=== PATIENT | female | born 1985 | race African-American/Black ===

== ENCOUNTER 2018-12-06 03:24 | Emergency (ER) | payer MEDICAID, OTHER ==
[2018-12-06] MEDS ORDERED: ONDANSETRON HCL INJ/PF 4 MG/2 ML SDV IV ONE (06:38)
[2018-12-06] MEDS ORDERED: NORMAL SALINE 1000 ML 1,000 ML IV ONE (06:38)
[2018-12-06] MEDS ORDERED: MORPHINE SULFATE 10 MG/ML INJ IV ONE (06:38)
--- NOTE | 2018-12-06 06:42 | ER Document Report ---
ED General - General Chief Complaint: Abdominal Pain Stated Complaint: ABDOMINAL PAIN TRAVEL OUTSIDE OF THE [place] IN LAST 30 DAYS: No - HPI Notes: Patient is a 32-year-old female presents emergency department for evaluation of 5 days of lower abdominal pain. She states it feels like "being in labor." She states the pain is been intermittent over the last 5 days. It is often a dull ache, but she is sharp and intense waves of cramping. She states the first wave happened 5 days ago. She had 2 episodes of emesis with that. She stated she also had an increase in the intensity of her pain last night. She had 4 episodes of nonbloody, nonbilious emesis this morning. She denies any fevers or chills. No urinary symptoms. Normal bowel movement just prior to arrival. She denies any vaginal discharge. No external sores. No history of STI. Her last menstruation was 5 days ago. She states it is always heavy, was nothing out of the ordinary. - Related Data Allergies/Adverse Reactions: No Known Allergies Allergy (Unverified 12/06/18 03:30) Past Medical History - General Information source: Patient - Social History Smoking Status: Current Every Day Smoker Family History: DM Patient has suicidal ideation: No Patient has homicidal ideation: No - Medical History Medical History: Other - Ovarian cysts Review of Systems - Review of Systems Constitutional: No symptoms reported EENT: No symptoms reported Cardiovascular: No symptoms reported Respiratory: No symptoms reported Gastrointestinal: See HPI Genitourinary: No symptoms reported Female Genitourinary: No symptoms reported Musculoskeletal: No symptoms reported Skin: No symptoms reported Neurological/Psychological: No symptoms reported Physical Exam - Vital signs Vitals: Temp Pulse Resp BP Pulse Ox 97.7 F 64 17 116/67 99 12/06/18 03:33 12/06/18 03:33 12/06/18 03:33 12/06/18 03:33 12/06/18 03:33 - Notes Notes: Vital signs reviewed, please refer to chart. Head is normocephalic, atraumatic. Pupils equal round, reactive to light. Neck is supple without meningismus. Heart is regular rate and rhythm. Lungs are clear to auscultation bilaterally. Abdomen is soft, moderately tender in the pelvis bilaterally, left greater than right, without rebound or guarding, normoactive bowel sounds throughout. Extremities without cyanosis, clubbing. Posterior calves are nontender. Peripheral pulses are equal. Skin is warm and dry. Patient is awake, alert, neurological exam is nonfocal. Course - Re-evaluation Re-evalutation: 12/06/18 09:19 Patient presents emergency department for evaluation of pelvic pain. Has been ongoing for 5 days. Her abdominal exam reveals tenderness but is nonsurgical. Laboratory investigations are largely unremarkable. She is a very mild leukocytosis. She has a few white blood cells in her urine, but it is nitrate negative. She has no urinary symptoms. Transvaginal ultrasound was performed and found to be unremarkable, including no signs of ovarian torsion. Patient is feeling improved. We will refer her on to primary care and gynecology for further evaluation. She will be sent home with anti-inflammatories. She is to return to the emergency department with worsening or new concerning symptoms of any sort. - Vital Signs Vital signs: Temp Pulse Resp BP Pulse Ox 97.7 F 64 18 107/59 L 99 12/06/18 03:33 12/06/18 03:33 12/06/18 07:09 12/06/18 08:20 12/06/18 08:20 - Laboratory Result Diagrams: 12/06/18 06:27 12/06/18 06:27 Laboratory results interpreted by me: 12/06/18 12/06/18 12/06/18 06:27 06:27 08:00 WBC 12.7 H Plt Count 138 L Seg Neutrophils % 86.5 H Lymphocytes % 9.4 L Absolute Neutrophils 11.0 H Glucose 114 H AST 46 H Urine Protein 30 H Ur Leukocyte Esterase TRACE H - Diagnostic Test Radiology reviewed: Reports reviewed Radiology results interpreted by me: 12/06/18 09:19 Transvaginal US 12/06/18 06:38 IMPRESSION: NORMAL TRANSVAGINAL PELVIC ULTRASOUND. Discharge - Discharge Clinical Impression: Pelvic pain Condition: Stable Disposition: HOME, SELF-CARE Instructions: Pelvic Pain ([facility]) Additional Instructions: No clear cause was found for your pain today. Take medication as prescribed, preferably with food. Follow-up with primary care no CHERRY GROWER. Return to the [facility] department with worsening or concerning symptoms of any sort. Referrals: NANNETTE BALDERAS MD [ACTIVE STAFF] - Follow up as needed SWATI MEEKS MD [[facility] [employer]KER HELPER] - Follow up as needed
[2018-12-06 06:55] LABS: ABSOLUTE LYMPHOCYTES (AUTO) 1.2 10^3/uL (0.5-4.7); ABSOLUTE MONOCYTES (AUTO) 0.5 10^3/uL (0.1-1.4); BASOPHILS % (AUTO) 0.1 % (0-2); EOSINOPHILS % (AUTO) 0.1 % (0-6); HEMATOCRIT 40.4 % (36.0-47.0); HEMOGLOBIN 13.2 g/dL (12.0-15.5); LYMPHOCYTES % (AUTO) 9.4 % (13-45); MEAN CORPUSCULAR HEMOGLOBIN 27.6 pg (27.0-33.4); MEAN CORPUSCULAR HGB CONC 32.6 g/dL (32.0-36.0); MEAN CORPUSCULAR VOLUME 85 fl (80-97); MONOCYTES % (AUTO) 3.9 % (3-13); PLATELET COUNT 138 10^3/uL (150-450); RED BLOOD COUNT 4.78 10^6/uL (3.72-5.28); RED CELL DISTRIBUTION WIDTH 13.5 % (11.5-14.0); SEGMENTED NEUTROPHILS % (AUTO) 86.5 % (42-78); TOTAL CELLS COUNTED % (AUTO) 100 %; WHITE BLOOD COUNT 12.7 10^3/uL (4.0-10.5)
[2018-12-06 06:57] LABS: ALANINE AMINOTRANSFERASE 43 U/L (9-52); ALBUMIN 4.1 g/dL (3.5-5.0); ALKALINE PHOSPHATASE 73 U/L (38-126); ANION GAP 7 (5-19); ASPARTATE AMINO TRANSFERASE 46 U/L (14-36); BILIRUBIN,DIRECT 0.2 mg/dL (0.0-0.4); BILIRUBIN,TOTAL 0.4 mg/dL (0.2-1.3); BLOOD UREA NITROGEN 11 mg/dL (7-20); CALCIUM 9.5 mg/dL (8.4-10.2); CARBON DIOXIDE 30 mmol/L (22-30); CHLORIDE 106 mmol/L (98-107); GLUCOSE 114 mg/dL (75-110); POTASSIUM 4.3 mmol/L (3.6-5.0); TOTAL PROTEIN 6.8 g/dL (6.3-8.2)
[2018-12-06 08:26] LABS: AMORPHOUS SEDIMENT,URINE TRACE /HPF; APPEARANCE,URINE SLIGHTLY-CLOUDY; BILIRUBIN,URINE NEGATIVE (NEGATIVE); COLOR,URINE YELLOW; GLUCOSE, URINE NEGATIVE (NEGATIVE); KETONES,URINE NEGATIVE (NEGATIVE); LEUKOCYTE ESTERASE,URINE TRACE (NEGATIVE); NITRITE,URINE NEGATIVE (NEGATIVE); PROTEIN,URINE 30 mg/dL (NEGATIVE); UROBILINOGEN,URINE NEGATIVE mg/dL (<2.0)
--- NOTE | 2018-12-06 08:48 | RADIOLOGY REPORT (SQ) ---
EXAM DESCRIPTION: U/S NON OB PEL TV W/DOPPLER COMPLETED DATE/TIME: 12/06/2018 8:22 am REASON FOR STUDY: pelvic pain, r/o torsion COMPARISON: None. TECHNIQUE: Dynamic and static grayscale images acquired of the pelvis via transvaginal approach and recorded on PACS. Additional selected color Doppler and spectral images recorded. LIMITATIONS: None. FINDINGS: UTERUS: Contour normal. No mass. ENDOMETRIAL STRIPE: No focal or generalized thickening. No masses. CERVIX: No nabothian cysts. RIGHT OVARY AND DOPPLER: Normal size. No worrisome masses. Normal arterial vascular flow without evid ence for torsion. LEFT OVARY AND DOPPLER: Normal size. No worrisome masses. Normal arterial vascular flow without evide nce for torsion. FREE FLUID: None noted. OTHER: No other significant finding. MEASUREMENTS: UTERUS: 9.2 x 4.9 x 4.7 cm ENDOMETRIAL STRIPE: 3 mm RIGHT OVARY: 3.7 x 2.3 x 3.5 cm LEFT OVARY: 2.8 x 2.2 x 2.3 cm IMPRESSION: NORMAL TRANSVAGINAL PELVIC ULTRASOUND. TECHNICAL DOCUMENTATION: JOB ID: [id number]- All Rights Reserved Rev-09/27 Reading location - IP/workstation name: [email or web address]
[2018-12-06] MEDS ORDERED: KETOROLAC TROMETHAMINE INJ/PF 30 MG/1 ML SDV IV ONE (09:18)
[2018-12-06 10:26] VITALS: BP 119/84
== END 2018-12-06 10:15 | disposition home or self-care (01) ==
LOC: ER 03:24
DX: R10.30 Lower abdominal pain, unspecified (principal); R11.10 Vomiting, unspecified; D72.829 Elevated white blood cell count, unspecified; F17.200 Nicotine dependence, unspecified, uncomplicated; Z87.42 Personal history of other diseases of the female genital tract
CPT/HCPCS: 99284; 96361; 96374; 96375; 36415; 84703; 85025; 80053; 81001; 76830; 93976; J1885; J2270; J2405; J7030